=== PATIENT | male | born 1955 | race Caucasian/White ===

== ENCOUNTER → 2017-06-13 | Outpatient (CLI) | payer OTHER | LOC: CIMAGING 14:51 | PROVIDERS: ATTEND Family Medicine | DX: R07.81 Pleurodynia (principal) | CPT/HCPCS: 71101-PO ==

== ENCOUNTER → 2017-10-07 | Outpatient (CLI) | payer OTHER | LOC: CIMAGING 09:23 | PROVIDERS: ATTEND Family Medicine | DX: R06.02 Shortness of breath (principal); Q79.0 Congenital diaphragmatic hernia; R93.422 Abnormal radiologic findings on diagnostic imaging of left kidney; J98.11 Atelectasis; K76.0 Fatty (change of) liver, not elsewhere classified; R16.0 Hepatomegaly, not elsewhere classified | CPT/HCPCS: 71250-PO ==

== ENCOUNTER → 2017-10-21 | Outpatient (CLI) | payer OTHER | LOC: CIMAGING 07:25 | PROVIDERS: ATTEND Family Medicine | DX: K76.0 Fatty (change of) liver, not elsewhere classified (principal); R93.422 Abnormal radiologic findings on diagnostic imaging of left kidney; K80.20 Calculus of gallbladder without cholecystitis without obstruction | CPT/HCPCS: 76700-PO ==

== ENCOUNTER → 2018-05-29 | Outpatient (CLI) | payer OTHER | LOC: CIMAGING 12:07 | PROVIDERS: ATTEND Family Medicine | DX: R07.81 Pleurodynia (principal); M85.88 Other specified disorders of bone density and structure, other site | CPT/HCPCS: 71101-PO; 72070-PO ==